=== PATIENT | male | born 1990 | race Caucasian/White ===

== ENCOUNTER 2016-12-07 17:36 | Emergency (ER) | payer SELFPAY ==
[~2016-12-07] VITALS: Ht 180.3 cm; Wt 127.3 kg
--- NOTE | 2016-12-07 17:40 | ERD ---
ER Documentation Chief Complaint Date/Time DATE: 12/07/16 TIME: 17:37 Chief Complaint HPI This is a 25-year-old male who presents to the emergency room for evaluation after being tasered by police officers for erratic behavior. This patient is in custody. He has no complaints at this time, no chest pain, no palpitations, no shortness of breath. ROS All systems reviewed and are negative except as per history of present illness. Allergies Allergies: Uncoded Allergies: CATS (Allergy, Unknown, 10/18/14) PMhx/Soc Hx Alcohol Use: Yes (occasional) Hx Substance Use: Yes Hx Tobacco Use: No Physical Exam Physical Exam INITIAL VITAL SIGNS: Reviewed by me GENERAL: The patient is well developed and appropriate for usual state of health in no apparent distress HEENT: Pupils equal, round, and reactive to light. EOMI. There is no scleral icterus. NECK: C-spine is soft and supple, there is no meningismus. There is no cervical lymphadenopathy. LUNGS: Clear to auscultation bilaterally. There are no rales, wheezes or rhonchi. HEART: Regular rate and rhythm, no murmurs, clicks, rubs or gallops. ABDOMEN: Soft, non-tender, non-distended. There are bowel sounds in all four quadrants. No rebound or guarding. EXTREMITIES: There is no peripheral cyanosis or edema. No focal swelling or erythema. NEUROLOGICAL: The patient moves all four extremities with 5/5 strength. Cranial nerves II - XII are intact. Normal gait. Alert and oriented SKIN: 2 Taser prongs lodged in the mid chest, there is no apparent rash or petechiae. HEME/LYMPHATIC: There is no evidence of excessive bruising or lymphedema. PSYCHIATRIC: The patient does not appear anxious or depressed. Procedures/MDM EKG: Rate/Rhythm: [Normal Sinus Rhythm] QRS, ST, T-waves: [No changes consistent w/ acute ischemia] Impression: [No evidence of ischemia or arrhythmia] Foreign Body Removal by me: Location: Chest Anesthesia: None Technique: Blunt dissection. Complications: Neurovascularly intact post procedure 48 hour wound check. Scar minimization instructions given. [ED Ultrasound: Foreign body localized by me using concurrent ultrasound guidance and assessment of the anatomy. Real time image archived in the medical record confirms anatomy.] This 25-year-old male presents to the ER for evaluation due to the fact that he was tasered, and needed Taser prongs removed. The patient is in no acute distress, no chest pain, no palpitations, no shortness of breath. This patient' s EKG is nonischemic, he is hemodynamically stable at this time and will be discharged back into police custody. Departure Diagnosis: Primary Impression: Taser injury Condition: Stable JUANITO MONK DO Dec 07, 2016 17:39
[2016-12-07 17:47] VITALS: Ht 180.3 cm; Wt 127.3 kg
[2016-12-07 18:48] LABS: ADD UMIC YES; URINE BILIRUBIN (Dip) NEGATIVE (NEGATIVE); URINE BLOOD (Dip) NEGATIVE (NEGATIVE); URINE GLUCOSE (Dip) NEGATIVE (NEGATIVE); URINE KETONES (Dip) TRACE (NEGATIVE); URINE LEUKOCYTE ESTERASE (Dip) NEGATIVE (NEGATIVE); URINE NITRITE (Dip) NEGATIVE (NEGATIVE); URINE TOTAL PROTEIN (Dip) 2+ (NEGATIVE); URINE UROBILINOGEN (Dip) 0.2 E.U./dL (0.1-1.0)
[2016-12-07 19:12] LABS: URINE COLOR YELLOW (YELLOW)
[2016-12-07 19:13] LABS: BARBITURATES Negative (NEGATIVE); BENZODIAZEPINES Negative (NEGATIVE); CANNABINOIDS Negative (NEGATIVE); COCAINE Negative (NEGATIVE); OPIATES Negative (NEGATIVE)
[2016-12-07 19:14] LABS: BACTERIA,URINE FEW; MUCUS,URINE MODERATE; TRANSITIONAL EPI CELLS,URINE FEW; URINE RBCS NONE SEEN /HPF (0)
[2016-12-07 19:28] VITALS: BP 135/84; PULSE 124; RESP 18; TEMP 99.9
[2016-12-07] MEDS ORDERED: ACETAMINOPHEN 500 MG TAB PO STA (19:31)
--- NOTE | 2016-12-07 19:33 | RADRPT ---
PROCEDURE: XR Chest. CLINICAL INDICATION: Fever and tachycardia. TECHNIQUE: Single frontal view of the chest was obtained COMPARISON: None FINDINGS: Cardiomegaly. Mild patchy lung base atelectasis versus airspace disease on the right. Findings sugg est mild right lung base pneumonia in setting of fever and tachycardia. Lungs otherwise substantiall y clear. There is no pleural effusion or pneumothorax. IMPRESSION: Mild right lung base pneumonia in setting of fever and tachycardia. RPTAT: [facility] Physician Pamela Date Time Electronically viewed and signed by Aure Simental Physician on 12/07/2016 19:33 RS/
[2016-12-07] MEDS ORDERED: AZIT250T94 PO (19:39)
[2016-12-07] MEDS ORDERED: AZITHROMYCIN 250 MG TAB PO ONE (20:00)
== END 2016-12-07 19:48 ==
LOC: E/R 17:36
DX: S21.149A Puncture wound with foreign body of unspecified front wall of thorax without penetration into thoracic cavity, initial encounter (principal); J18.9 Pneumonia, unspecified organism; R40.2142 Coma scale, eyes open, spontaneous, at arrival to emergency department; R40.2242 Coma scale, best verbal response, confused conversation, at arrival to emergency department; R40.2362 Coma scale, best motor response, obeys commands, at arrival to emergency department; W86.8XXA Exposure to other electric current, initial encounter; Y92.148 Other place in prison as the place of occurrence of the external cause; Z87.891 Personal history of nicotine dependence
CPT/HCPCS: 71010; 80307; 81001; 81003; 93005